=== PATIENT | male | born 1980 | race Caucasian/White ===

== ENCOUNTER 2020-03-26 12:26 | Outpatient (CLI) | payer BC, SELFPAY ==
[2020-03-26 13:34] LABS: SARS-CoV-2 Ag Negative (Negative)
== END 2020-03-26 12:27 | disposition home or self-care (01) ==
LOC: CHSLAB 12:31
PROVIDERS: PCP Family Medicine; Visit Provider Nurse Practitioner
DX: Z20.828 Contact with and (suspected) exposure to other viral communicable diseases (principal)
CPT/HCPCS: 87426

== ENCOUNTER 2024-11-24 17:45 | Emergency (ER) | payer OTHER, SELFPAY ==
[2024-11-24 17:45] VITALS: BP 136/100; PULSE 83; RESP 16; TEMP 36.5; O2SAT 100
--- OUTSIDE RECORDS SUMMARY | 2024-11-24 17:53 | XMS_ITS | Clinical Summary ---
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 Gender Identity Not on file Sexual Orientation Not on file Plan of Treatment Health Maintenance Due Date Last Done Comments Colorectal Cancer Screening Colonoscopy (10 Years) 1979 Annual Physical 1982 Hepatitis C 1997 DTaP, Tdap and Td Vaccines ( 1 - Tdap) 1998 Hepatitis B Vaccines (1 of 3 - 19+ 3-dose series) 1998 HPV Vaccines (1 - 3-dose SCD M series) 2006 COVID-19 Vaccine (2023-2 5 season) 2024 Meningococcal B Vaccine Aged Out No l onger eligible based on patient's age to complete this topic Meningococcal Vaccine Aged Out No katina charley eligible based on patient's age to complete this topic Pneumococcal Vaccine: Pediat rics (0 to 5 Years) and At-Risk Patients (6 to 49 Years) Aged Out No longer eligible b ased on patient's age to complete this topic RSV Immunizations Under 20 Months Aged Out No longer eligible based on patient's age to complete this topic
--- OUTSIDE RECORDS SUMMARY | 2024-11-24 18:56 | XMS_ITS | Clinical Summary ---
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
--- NOTE | 2024-11-24 19:06 | ED.EYEPROB ---
HPI - Eye Problem General Chief complaint: Eye Problems Stated complaint: eye irritation Source: patient Mode of arrival: ambulatory Limitations: no limitations History of Present Illness HPI Narrative: patient is a 44-year-old male with a right eye complaint at this time. Patient started to have a right eye pain and irritation yesterday. He works with metal and piping. He does not remember specific event but said that he feels like something is in the eye more so in the medial aspect. He flushed the eye after the pain started. chief complaint: eye pain ( Right eye), eye redness and eye injury ( possible metal pieces) Onset (ago): day(s) ( 2) Onset description: sudden Duration: constant Location: right eye Eye Symptoms: burning, redness, pain, foreign body sensation and photophobia Place: work Mechanism: direct trauma and occurred while hammering/grinding Severity: moderate Severity scale (1-10): 4 If Pain, Quality: sharp and burning Context: trauma ( patient works with metal and piping) Associated symptoms: none Treatments Prior to Arrival: irrigated eye and OTC eye drops Related Data Allergies Allergy/AdvReac Type Severity Reaction Status Date / Time No Known Allergies Allergy Verified 11/24/24 18:12 Review of Systems Review of Systems: All systems reviewed & are unremarkable except as noted in HPI and below Constitutional: Constitutional: Reports no additional constitutional complaints Eyes: Eyes: Reports no additional eye complaints ENT: Reports system reviewed and no additional complaints, except as documented Cardiovascular: Cardiovascular: Reports no additional cardiovascular complaints Respiratory: Respiratory: Reports no additional respiratory complaints Gastrointestinal: Gastrointestinal: Reports no additional gastrointestinal complaints Genitourinary: Genitourinary: Reports no additional male genitourinary complaints Musculoskeletal: Musculoskeletal: Reports no additional musculoskeletal complaints Integumentary/Breasts: Skin/Breast: Reports system reviewed and no additional complaints, except as docu Neurologic: Reports system reviewed and no additional complaints, except as documented Psychiatric: Psychiatric: Reports no additional psychiatric complaints Endocrine: Endocrine: Reports no additional endocrine complaints Hematologic/Lymphatic: Hematologic/Lymphatic: Reports no additional hematologic/lymphatic complaints Allergic/Immunologic: Allergic/Immunologic: Reports no additional allergic/immunologic complaints PMFSH Family History Family History Father Rectal cancer Heart disease Sibling Heart disease Grandparent Cerebrovascular accident Heart disease Social History Social History Tobacco type: e-cigarettes/vaping Alcohol intake: current Substance use: never Exam Const: General: healthy appearing Nutritional Appearance: well nourished Orientation/consciousness: patient oriented x3 HENMT: Head: normal to inspection Ears: external ears normal Face/Nose/Sinus: Normal external nose present Eyes: Conjunctivae: abnormal conjunctivae and conjunctival abnormality ( right eye red and irritated) Pupils: Equal, round and reactive pupils present EOM: EOMs intact bilaterally Direct Ophthalmoscopy: No no photophobia and photophobia ( right eye) Other: right eye is irritated and inflamed more so medially; no visual changes Neck: Neck: normal visual inspection Chest: Chest palpation & inspection: normal inspection of the chest Resp: Effort & Inspection: normal respiratory effort and not labored Auscultation: clear to auscultation bilaterally and no crackles Cardio: Rate: regular rate Rhythm: regular rhythm Heart sounds: no murmurs GI: Inspection: non-distended GI Palp: Yes Soft to palpation and No Tenderness to palpation present (GI) Auscultation: normal bowel sounds : General: Yes bladder normal to palpation Back/Spine/Pelvis: Back: no CVA tenderness Skin: General skin exam: normal color Rashes: no rashes Wounds: no wounds Neuro: General: patient oriented x3 Cranial nerves: Yes Nystagmus not present Speech: normal speech Extrem: General: normal to inspection Psych: Mental Status: mental status grossly normal Affect: normal affect Attitude: cooperative Course Vital Signs Vital signs: Vital Signs Temperature 36.5 C 11/24/24 17:45 Pulse Rate 83 11/24/24 17:45 Respiratory Rate 16 11/24/24 17:45 Blood Pressure 136/100 H 11/24/24 17:45 Pulse Oximetry 100 11/24/24 17:45 Oxygen Delivery Room Air 11/24/24 17:45 Temperature 36.5 C 11/24/24 17:45 Pulse Rate 83 11/24/24 17:45 Respiratory Rate 16 11/24/24 17:45 Blood Pressure 136/100 H 11/24/24 17:45 Pulse Oximetry 100 11/24/24 17:45 Oxygen Delivery Room Air 11/24/24 17:45 Procedures Other Procedure Procedure 1: Other Procedure: Right eye was examined by direct visualization, tetracaine placed with fluorescein, black light used without any signs of foreign body MDM - Eye Problem MDM Narrative Medical decision making narrative: patient is a 44-year-old male with right eye irritation after working his job that has metal and piping. The eye was inspected and fluorescein stain used but no foreign body seen. He does have some old rust rings. Tetracaine used. Maxitrol. Discharge Plan Discharge Clinical Impression: Bacterial conjunctivitis Corneal abrasion Qualifiers: Encounter type: initial encounter Laterality: right Qualified Code(s): S05.01XA - Injury of conjunctiva and corneal abrasion without foreign body, right eye, initial encounter Blepharitis Qualifiers: Blepharitis type: unspecified type Laterality: right Eyelid: both upper and lower Qualified Code(s): H01.00A - Unspecified blepharitis right eye, upper and lower eyelids Patient Disposition: Home Condition: Stable Instructions: Antibiotic Form, Corneal Abrasion (DC), Blepharitis (ED) Patient Language: Liberian Prescriptions: New neomycin-polymyxin B-dexameth [Maxitrol] 3.5mg/mL-10,000 unit/mL-0.1 % drops,suspension 2 drp EACH EYE TID 7 Days Qty: 5 0RF Follow-up/Referrals: Jorden,Guido Cervantes MD [Primary Care Provider] - Time of Disposition: 19:35
[2024-11-24] MEDS: TETRACAINE HCL 0.5% OPHTH SOLN 4 ML BTL 1 DROP EACH EYE (19:17)
[2024-11-24] MEDS: FLUORESCEIN SOD 1 MG/STRIP EACH EYE (19:17)
[2024-11-24] MEDS: NEOMYCIN/POLYMYXIN/HYDROCORT 7.5 ML EYE DROPS (*BKC) 1 DROP EACH EYE (19:41)
--- NOTE | 2024-11-25 08:12 | PC.NURSE ---
message left for pt to return call to verify tetanus status. If he is not up to date, he will need a tetanus vaccine. He can get one from his PMD, [facility], [facility], urgent care, or return to ED for vaccine.
== END 2024-11-24 19:49 | disposition home or self-care (01) ==
PROVIDERS: Emergency Provider Emergency Medicine; PCP Family Medicine
DX: S05.01XA Injury of conjunctiva and corneal abrasion without foreign body, right eye, initial encounter (principal); H01.00A Unspecified blepharitis right eye, upper and lower eyelids; H10.89 Other conjunctivitis; F17.290 Nicotine dependence, other tobacco product, uncomplicated; X58.XXXA Exposure to other specified factors, initial encounter
CPT/HCPCS: 99283; A9270